=== PATIENT | female | born 1950 ===

== ENCOUNTER → 2017-04-01 | Outpatient (CLI) | payer BC ==
[~2017-04-01] MED LIST: ACYCLOVIR400 MG PO; ASPIRIN E.C. 8181 MG PO; FLUOXETINE20 MG PO; LISINOPRIL/HCTZ1 TA2 PO; MOTRIN400 MG PO; MULTIPLE VITAMI1 CAP PO; OMEPRAZOLE20 MG PO; PREMARIN0.45 MG PO; SIMVASTATIN40 MG PO
== END ==
LOC: COL.VAS 07:30
DX: I34.0 Nonrheumatic mitral (valve) insufficiency (principal)

== ENCOUNTER → 2017-05-05 | Outpatient (CLI) | payer BC | LOC: MC.RAD 04-23 07:00 | DX: Z12.31 Encounter for screening mammogram for malignant neoplasm of breast (principal) ==

== ENCOUNTER → 2019-06-17 | Outpatient (CLI) | payer BC | LOC: MC.RAD 08:15 | DX: Z12.31 Encounter for screening mammogram for malignant neoplasm of breast (principal) ==

== ENCOUNTER → 2020-11-02 | Outpatient (CLI) | payer BC | LOC: MC.RAD 08:09 | DX: Z12.31 Encounter for screening mammogram for malignant neoplasm of breast (principal) ==

== ENCOUNTER → 2023-07-06 | Outpatient (CLI) | payer OTHER ==
[~2023-07-06] MED LIST changes: -ACYCLOVIR400 MG PO; +BENICAR 20MG TA20 MG PO; +CENTRUM CHEWAB1 EAC4 PO; +CRESTOR20 MG PO; +ELIQUIS 5MG PO; -FLUOXETINE20 MG PO; +GLUCOPHAGE1000 MG PO; +LASIX 20MG TABL20 MG PO; +METAMUCIL0.52 G1; +MOTRIN 400400 MG/TAB PO; -MOTRIN400 MG PO; +NORVASC 10MG10 MG PO; +OMEGA-3 1000 MG1 CAP PO; -OMEPRAZOLE20 MG PO; +PRILOSEC 20MG20 MG PO; +PROAIR HFA0.09 MG/AC IH; +PROZAC 20MG20 MG PO; +TENORMIN 2525 MG/TAB PO; +VITAMIN D31000 IU PO; +ZOVIRAX400 MG PO
== END ==
LOC: MC.RAD 10:21
DX: Z12.31 Encounter for screening mammogram for malignant neoplasm of breast (principal)

== ENCOUNTER → 2023-09-16 | Outpatient (CLI) | payer OTHER | LOC: COL.RAD 07:17 | DX: L98.9 Disorder of the skin and subcutaneous tissue, unspecified (principal) ==